=== PATIENT | female | born 1985 | race Caucasian/White ===

== ENCOUNTER 2017-06-25 11:57 | Emergency (ER) | payer MEDICAID ==
[2017-06-25 12:02] VITALS: BP 133/84
--- NOTE | 2017-06-25 12:20 | ED Physician Documentation ---
PD HPI DYSPNEA - Stated complaint Stated Complaint: WHEEZING,COUGH - Chief complaint Chief Complaint: Resp - History obtained from History obtained from: Patient - History of Present Illness Timing - onset: Other (7 days of wheezing and dry cough with some loss of voice buyt at most mild sore throat. The cough is quite bad though, keeping her up at night. No fevers. Has H/O asthma, usually does not need any daily tx, but currently albuterol is insufficient.) Review of Systems Constitutional: reports: Fatigue (from poor sleep d/t cough). denies: Fever, Chills, Myalgias Ears: denies: Loss of hearing, Ear pain Nose: denies: Rhinorrhea / runny nose, Congestion Throat: denies: Sore throat Respiratory: reports: Dyspnea, Cough, Wheezing. denies: Hemoptysis GI: denies: Abdominal Pain PD PAST MEDICAL HISTORY - Past Medical History Past Medical History: Yes Respiratory: Asthma - Past Surgical History Past Surgical History: Yes General: Cholecystectomy - Present Medications Home Medications: Ambulatory Orders Medication Instructions Recorded Confirmed Albuterol Sulfate [Proventil Hfa 1 - 2 puffs IH Q4H PRN #1 06/25/17 Inhaler] hfa.aer.ad guaiFENesin/CODEINE [Robitussin AC] 5 - 10 ml PO Q6H PRN #120 ml 06/25/17 predniSONE [Deltasone] 60 mg PO DAILY 5 Days 06/25/17 - Allergies Allergies/Adverse Reactions: Allergies Allergy/AdvReac Type Severity Reaction Status Date / Time No Known Drug Allergies Allergy Verified 02/08/16 14:34 - Social History Does the pt smoke?: No Smoking Status: Never smoker Does the pt drink ETOH?: Yes Does the pt have substance abuse?: No - Immunizations Immunizations are current?: Yes PD ED PE NORMAL - Vitals Vital signs reviewed: Yes - General General: Alert and oriented X 3, No acute distress - HEENT HEENT: PERRL, EOMI, Pharynx benign - Neck Neck: Supple, no meningeal sign, No bony TTP - Cardiac Cardiac: RRR, No murmur - Respiratory Respiratory: No respiratory distress, Other (Mild diffuse insp wheezes but no rhonchi or focal findings. Good air motion.) - Abdomen Abdomen: Soft, Non tender - Neuro Neuro: Alert and oriented X 3, Normal speech - Psych Psych: Normal mood, Normal affect Results - Vitals Vitals: Vital Signs - 24 hr 06/25/17 12:00 Temperature 36.0 C L Heart Rate 107 H Respiratory 20 Rate Blood Pressure 133/84 H O2 Saturation 98 Oxygen O2 Source Room air Departure - Departure Disposition: 01 Home, Self Care Clinical Impression: Asthma Qualifiers: Asthma severity: mild intermittent Asthma complication type: with acute exacerbation Qualified Code(s): J45.21 - Mild intermittent asthma with (acute) exacerbation Condition: Good Record reviewed to determine appropriate education?: Yes Instructions: Asthma Dc Prescriptions: predniSONE [Deltasone] 60 mg PO DAILY 5 Days Albuterol Sulfate [Proventil Hfa Inhaler] 1 - 2 puffs IH Q4H PRN #1 hfa.aer.ad PRN Reason: Cough guaiFENesin/CODEINE [Robitussin AC] 5 - 10 ml PO Q6H PRN #120 ml PRN Reason: Cough Comments: Call your doctor to arrange a follow-up appointment, make the next available appointment. In the interim, return anytime if worse or if new symptoms develop. Your blood pressure was elevated today on check into the emergency department. This does not mean that you have hypertension, it is a common phenomenon to come to the emergency department and have elevated blood pressure. I recommend that she see your primary care physician within the week to have it rechecked when you are feeling better.
== END 2017-06-25 12:30 | disposition home or self-care (01) ==
LOC: ED 11:57
DX: J45.21 Mild intermittent asthma with (acute) exacerbation (principal); R03.0 Elevated blood-pressure reading, without diagnosis of hypertension
CPT/HCPCS: 99282; 99283

== ENCOUNTER 2023-11-18 08:17 | Outpatient (CLI) | payer OTHER, MEDICAID ==
--- NOTE | 2023-11-18 09:07 | XRAY Report ---
PROCEDURE: Finger(s) LT INDICATIONS: SPRAIN OF LEFT LITTLE FINGER TECHNIQUE: AP hand, 2 views of the fifth finger(s) acquired. COMPARISON: None. FINDINGS: Bones: Small calcification adjacent to and ulnar aspect of fifth proximal phalangeal head is seen co ncerning for subtle avulsion injury in this area. No other fracture or dislocation. No suspicious bon y lesions. Soft tissues: No suspicious soft tissue calcifications or masses. IMPRESSION: Finding is concerning for subtle avulsion injury involving dorsal and ulnar aspect of fifth proximal phalangeal head/PIP joint. Clinical correlation is recommended. No other fracture or dislocation. Reviewed by: Vincent Martin MD on 11/18/2023 9:05 AM PST Approved by: Vincent Martin MD on 11/18/2023 9:05 AM PST Station ID: [id number]
== END 2023-11-18 23:59 | disposition home or self-care (01) ==
LOC: DI.S 08:17
PROVIDERS: ATTEND Emergency Medicine
DX: S63.697A Other sprain of left little finger, initial encounter (principal)

== ENCOUNTER 2023-11-22 08:00 | Outpatient (CLI) | payer OTHER, MEDICAID ==
--- NOTE | 2023-11-22 16:31 | XRAY Report ---
PROCEDURE: Finger(s) LT INDICATIONS: LEFT PINKY FINGER FX TECHNIQUE: AP hand, 2 views of the fifth finger(s) acquired. COMPARISON: None. FINDINGS: Bones: Subtle cortical irregularity involving volar aspect of fifth PIP joint is seen concerning for subtle avulsion injury in this area. No other fracture or dislocation. No suspicious bony lesions. Soft tissues: No suspicious soft tissue calcifications or masses. IMPRESSION: Finding is concerning for subtle avulsion injury involving volar aspect of fifth PIP joint. Reviewed by: Vincent Martin MD on 11/22/2023 4:30 PM PST Approved by: Vincent Martin MD on 11/22/2023 4:30 PM PST Station ID: [id number]
== END 2023-11-22 23:59 | disposition home or self-care (01) ==
LOC: DI.S 08:00
PROVIDERS: ATTEND Emergency Medicine
DX: S62.617A Displaced fracture of proximal phalanx of left little finger, initial encounter for closed fracture (principal)

== ENCOUNTER 2023-12-04 12:35 | Emergency (ER) | payer OTHER, MEDICAID ==
[2023-12-04 13:19] LABS: BASOPHILS # (AUTO) 0.1 10^3/uL (0.0-0.1); BASOPHILS % (AUTO) 0.7 %; EOSINOPHILS # (AUTO) 0.1 10^3/uL (0.0-0.7); EOSINOPHILS % (AUTO) 1.5 %; HCT - HEMATOCRIT 41.7 % (37.0-47.0); HGB - HEMOGLOBIN 13.7 g/dL (12.0-16.0); LYMPHOCYTES # (AUTO) 2.7 10^3/uL (1.5-3.5); LYMPHOCYTES % (AUTO) 35.7 %; MEAN CORPUSCULAR HEMOGLOBIN 29.3 pg (27.0-31.0); MEAN CORPUSCULAR HGB CONC 32.9 g/dL (32.0-36.0); MEAN CORPUSCULAR VOLUME 89.1 fL (81.0-99.0); MEAN PLATELET VOLUME 9.1 fL (7.9-10.8); MONOCYTES # (AUTO) 0.5 10^3/uL (0.0-1.0); MONOCYTES % (AUTO) 6.6 %; NEUTROPHILS # (AUTO) 4.2 10^3/uL (1.5-6.6); NEUTROPHILS % (AUTO) 55.4 %; PLT - PLATELET COUNT 247 10^3/uL (130-450); RED BLOOD COUNT 4.68 10^6/uL (4.20-5.40); RED CELL DISTRIBUTION WIDTH 12.4 % (12.0-15.0); WHITE BLOOD COUNT 7.6 x10^3/uL (4.8-10.8)
[2023-12-04 13:38] LABS: ALBUMIN 4.8 g/dL (3.2-5.5); ALBUMIN/GLOBULIN RATIO 1.7 (1.0-2.2); BILIRUBIN,TOTAL 0.6 mg/dL (0.2-1.0); CALCIUM 10.2 mg/dL (8.5-10.3); CREATININE 0.7 mg/dL (0.6-1.3); POTASSIUM 3.8 mmol/L (3.5-4.5); TOTAL PROTEIN 7.6 g/dL (6.4-8.9)
--- NOTE | 2023-12-04 13:41 | XRAY Report ---
PROCEDURE: Chest 1V INDICATIONS: Chest pain TECHNIQUE: One view of the chest was acquired. COMPARISON: None. FINDINGS: Surgical changes and devices: None. Lungs and pleura: Minimal right costophrenic angle blunting. Mediastinum: Mediastinal contours appear normal. Heart size is normal. Bones and chest wall: No suspicious bony lesions. Overlying soft tissues appear unremarkable. IMPRESSION: Minimal right effusion versus scarring. Reviewed by: Tootie Deal MD on 12/04/2023 1:40 PM PST Approved by: Tootie Deal MD on 12/04/2023 1:40 PM PST Station ID: [id number]
[2023-12-04 13:48] LABS: TROPONIN I HIGH SENSITIVITY 2.3 ng/L (2.3-14.8)
--- NOTE | 2023-12-04 15:51 | ED Physician Documentation ---
History of Present Illness - Stated complaint Stated Complaint: CHEST PX,SOA,LT ARM TINGLING - Chief complaint Chief Complaint: Cardiac - History obtained from History obtained from: Patient - History of Present Illness Timing: How many days ago (6) Pain level max: 3 Pain level now: 0 - Additonal information Additional information: 38 year old female states awoke this morning with L arm tingling, like she had slept on it. She states history of cervical radiculopathy. States that her coworker called out sick today, so she had increased stress at work. Patient states that she felt like there was a heaviness on her chest approximately 4 hours prior to arrival. She states that she felt like she was having a panic attack, but was concerned about a heart attack so decided to come into the emergency department. She does not have any chest pain or pressure now. The pain was nonradiating. No change with exertion, movement, breathing. No recent travel. No leg pain. No leg swelling. No recent URI. No fevers. No cough. No congestion. No history of ACS. Review of Systems Constitutional: denies: Fever, Chills Nose: denies: Rhinorrhea / runny nose, Congestion Cardiac: denies: Palpitations Respiratory: denies: Dyspnea, Cough, Wheezing GI: denies: Vomiting, Diarrhea Skin: denies: Rash Musculoskeletal: denies: Neck pain, Back pain Neurologic: denies: Headache PD PAST MEDICAL HISTORY - Past Medical History Respiratory: Asthma Psych: Anxiety, Panic attacks - Past Surgical History Past Surgical History: Yes General: Cholecystectomy - Present Medications Home Medications: Ambulatory Orders Medication Instructions Recorded Confirmed Escitalopram [Lexapro] 5 mg PO DAILY 12/04/23 12/04/23 Etodolac 400 mg PO BID PRN 12/04/23 12/04/23 Lisdexamfetamine Dimesylate 20 mg PO DAILY 12/04/23 12/04/23 busPIRone [Buspar] 10 mg PO DAILY PRN 12/04/23 12/04/23 - Allergies Allergies/Adverse Reactions: Allergies Allergy/AdvReac Type Severity Reaction Status Date / Time gabapentin AdvReac Unknown Verified 12/04/23 12:49 - Social History Does the pt smoke?: No Smoking Status: Never smoker Does the pt drink ETOH?: Yes Does the pt have substance abuse?: No - Immunizations Immunizations are current?: Yes PD ED PE NORMAL - Vitals Vital signs reviewed: Yes - General General: Alert and oriented X 3, No acute distress - HEENT HEENT: PERRL, Moist mucous membranes - Neck Neck: Supple, no meningeal sign - Cardiac Cardiac: RRR, No murmur, Strong equal pulses - Respiratory Respiratory: No respiratory distress, Clear bilaterally - Abdomen Abdomen: Soft, Non tender, Non distended - Derm Derm: Warm and dry - Extremities Extremities: No edema, No calf tenderness / cord - Neuro Neuro: Alert and oriented X 3 - Psych Psych: Normal mood, Normal affect Results - Vitals Vitals: Vital Signs - 24 hr 12/04/23 12/04/23 12/04/23 12:42 15:44 16:00 Temperature 36.2 C L Heart Rate 89 82 70 Respiratory 18 22 15 Rate Blood Pressure 143/89 H 142/96 H 145/67 H O2 Saturation 100 100 98 12/04/23 16:03 Temperature Heart Rate 70 Respiratory 15 Rate Blood Pressure 145/67 H O2 Saturation 97 Oxygen O2 Source Room air - EKG (time done) 1255 EKG releavant findings:: EKG personally interpreted by author of this note. Relevant findings are: Rate: Rate (enter#) (73) Rhythm: NSR [place]: Normal Intervals: Normal NC QRS: Normal Ischemia: Normal ST segments - Labs Labs: Laboratory Tests 12/04/23 12/04/23 13:14 13:14 WBC 7.6 RBC 4.68 Hgb 13.7 Hct 41.7 MCV 89.1 MCH 29.3 MCHC 32.9 RDW 12.4 Plt Count 247 MPV 9.1 Neut # (Auto) 4.2 Lymph # (Auto) 2.7 Wetzel # (Auto) 0.5 Eos # (Auto) 0.1 Baso # (Auto) 0.1 Absolute Nucleated RBC 0.00 Nucleated RBC % 0.0 Sodium 139 Potassium 3.8 Chloride 104 Carbon Dioxide 30 Anion Gap 5.0 L BUN 11 Creatinine 0.7 Estimated GFR (MDRD) 95 Glucose 94 Calcium 10.2 Total Bilirubin 0.6 AST 14 ALT 15 Alkaline Phosphatase 82 Troponin I High Sens 2.3 Total Protein 7.6 Albumin 4.8 Globulin 2.8 Albumin/Globulin Ratio 1.7 Lipase 13 - Rads (name of study) cxr Relevant Findings:: Final report received, See rad report PD Medical Decision Making - ED course Complexity details: reviewed results, re-evaluated patient, considered differential (No ST elevation [place], no aortic dissection, no PE, no tension pneumothorax, no aortic aneurysm), d/w patient ED course: Patient is a 38-year-old female who presents to the emergency department with atypical chest pain. No acute findings on EKG, chest x-ray and laboratory testing. Symptoms had resolved prior to the emergency department visit. Negative high sensitive troponin. No risk factors for DVT or PE. No hypoxia. No tachycardia. Patient states that she had recently cut down on her buspirone for her anxiety and feels like this may have been a panic attack. She will follow-up with her doctor for further care. Patient counseled regarding signs and symptoms for which I believe and urgent re-evaluation would be necessary. Patient with good understanding of and agreement to plan and is comfortable going home at this time This document was made in part using voice recognition software. While efforts are made to proofread this document, sound alike and grammatical errors may occur. Departure - Departure Disposition: 01 Home, Self Care Clinical Impression: Anxiety Chest pain Qualifiers: Chest pain type: unspecified Qualified Code(s): R07.9 - Chest pain, unspecified Condition: Good Instructions: ED Chest Pain Atypical Unkn Cause, ED Panic Attack Follow-Up: OTIS FRANCOIS MD [Primary Care Provider] - Comments: Please follow up with your doctor for further care. Your EKG, chest xray and lab testing do not show any evidence of a heart attack today. Continue your current medications at home and return if you worsen. Forms: PCP List Discharge Date/Time: 12/04/23 16:03
[2023-12-04 16:09] VITALS: BP 145/67; O2SAT 97
== END 2023-12-04 16:03 | disposition home or self-care (01) ==
LOC: ED 12:35
DX: F41.9 Anxiety disorder, unspecified (principal); R07.89 Other chest pain; Z79.899 Other long term (current) drug therapy
CPT/HCPCS: 36415; 80053; 83690; 84484; 85025; 93005; 99284